=== PATIENT | male | born 1955 | race Caucasian/White ===

== ENCOUNTER 2017-06-04 00:16 | Emergency (ER) | payer OTHER ==
--- NOTE | 2017-06-04 00:49 | ED PDOC ---
Arrival/HPI - General Chief Complaint: Psychiatric Evaluation Time Seen by Provider: 06/04/17 00:21 Historian: Patient, Family (Daughter) - History of Present Illness Narrative History of Present Illness (Text): 06/04/17 00:39 61 year old male, whose past medical history includes hypertension, asthma, diabetes, and bipolar disorder (Noncompliant with Risperidone), presents to the emergency department [facility] for delusional behavior at work today. Patient states "[employer]IR[place] is after him" and called the police. Patient's daughter reports this has been going on for months and has an appointment to see the psychologist Dr. Madeline Finley. Patient's daughter reportedly states he was here last week and was discharged after PES evaluation. Patient is A&Ox3. Patient denies recent travel, drug use, alcohol use, any fever, chills, chest pain, shortness of breath, nausea, vomiting, diarrhea, urinary symptoms, back pain, neck pain, headache, dizziness, suicidal/homicidal Ideation or any other complaints. PMD: Dr. Salinas Symptom Onset: Sudden Symptom Course: Unchanged Activities at Onset: Light Context: Work Past Medical History - Provider Review Nursing Documentation Reviewed: Yes - Travel History Have you recently traveled outside [place] w/in the past 3 mons?: No - Pulmonary Hx Asthma: Yes - Psychiatric Hx Substance Use: No Family/Social History - Physician Review Nursing Documentation Reviewed: Yes Family/Social History: No Known Family HX Smoking Status: no Hx Alcohol Use: No Hx Substance Use: No Allergies/Home Meds Allergies/Adverse Reactions: Allergies montelukast [From Singulair] Allergy (Verified 06/04/17 00:23) RASH Home Medications: Home Meds Medication Instructions Recorded Confirmed Unobtainable 06/04/17 06/04/17 Review of Systems - Physician Review All systems were reviewed & negative as marked: Yes - Review of Systems Constitutional: absent: Fevers, Other (Chills) Respiratory: absent: SOB Cardiovascular: absent: Chest Pain Gastrointestinal: absent: Diarrhea, Nausea, Vomiting Genitourinary Male: absent: Dysuria, Frequency, Hematuria Musculoskeletal: absent: Back Pain, Neck Pain Neurological: absent: Headache, Dizziness Psychiatric: Other (Dilusional behavior). absent: Suicidal Ideation (/ homicidal ideation) Physical Exam Vital Signs Reviewed: Yes Vital Signs Temp Pulse Resp BP Pulse Ox 06/04/17 02:16 98.5 F 80 17 124/71 98 06/04/17 00:17 97.9 F 84 18 142/78 99 Temperature: Afebrile Blood Pressure: Normal Pulse: Regular Respiratory Rate: Normal Appearance: Positive for: Well-Appearing, Non-Toxic, Comfortable Pain Distress: None Mental Status: Positive for: Alert and Oriented X 3 - Systems Exam Head: Present: Atraumatic, Normocephalic Pupils: Present: PERRL Extroacular Muscles: Present: EOMI Conjunctiva: Present: Normal Mouth: Present: Moist Mucous Membranes Neck: Present: Normal Range of Motion Respiratory/Chest: Present: Clear to Auscultation, Good Air Exchange. No: Respiratory Distress, Accessory Muscle Use Cardiovascular: Present: Regular Rate and Rhythm, Normal S1, S2. No: Murmurs Abdomen: Present: Normal Bowel Sounds. No: Tenderness, Distention, Peritoneal Signs Back: Present: Normal Inspection Upper Extremity: Present: Normal Inspection. No: Cyanosis, Edema Lower Extremity: Present: Normal Inspection. No: Edema Neurological: Present: GCS=15, CN II-XII Intact, Speech Normal Skin: Present: Warm, Dry, Normal Color. No: Rashes Psychiatric: Present: Alert, Oriented x 3, Normal Insight, Delusional Medical Decision Making ED Course and Treatment: 06/04/17 00:39 You were treated in the ED for delusional behavior at work today. Patient states "[employer]IR[place] is after him" and called the police. Patient's daughter reports this has been going on for months and has an appointment to see the psychologist Dr. Madeline Finley. Patient's daughter reportedly states he was here last week and was discharged after PES evaluation. Patient is A&Ox3. Patient denies recent travel, drug use, alcohol use, any fever, chills, chest pain, shortness of breath, nausea, vomiting, diarrhea, urinary symptoms, back pain, neck pain, headache, dizziness, suicidal/homicidal Ideation or any other complaints. You were otherwise breathing easily, smiling with your son and daughter, good strength/sensation, walking easily, clear lungs, no abdomen tenderness, no fever temp _97.9__, stable heart rate _84___, stable breathing rate __18__, excellent oxygen level 99% room air, elevated blood pressure __142/ 78___ which we recommend repeat in 2-3 days primary care office to determine further treatment, you have blood tests no infection count 4.5, stable blood level hemoglobin 14.2/platelets 223, stable chemistry sodium 139, potassium 4.1 , bicarbonate 25, chloride 102, bun 16, creatinine 1.1, mildly elevated glucose 216, liver AST/ALT 23/36, Liver Alklaline Phosphatase 70, Liver bilirubin 0.4, heart blood test <0.01, urine test High Trace of Protein and Ketones, radiology Chest X-ray mild vascular markings and recommend followup primary care and pulmonary referral 2-3 days to ensure no complications/cancer development, ECG normal sinus rhythm, PES stated you can stay in the hospital if voluntary but since your not having thoughts to harm yourself or anyone else that if you want you can go home which you and your family want to go home but you must be compliant with your risperdone to help you control your thoughts done thus in the ED with improvement, counselled to take your risperdone and thus discharged home with your family who will watch you and you have a good support network. 1. Recommend follow-up primary care 2-3 days to review symptoms, followup with your mental health appointment that is planned, endocrine clinic for mildly elevated sugar control, urology referral to ensure no complications for protein in urine. 4. If any worsening pain, fever, chills, nausea, vomiting, difficulty breathing, numbness, loss of limb function, pain with urination or any medical condition then return to the ED. 06/04/17 03:35 06/04/17 03:35 06/04/17 03:41 - Lab Interpretations Lab Results: 06/04/17 00:54 06/04/17 00:54 Lab Results 06/04/17 01:35: Urine Opiates Screen Negative, Urine Methadone Screen Negative, Ur Barbiturates Screen Negative, Ur Phencyclidine Scrn Negative, Ur Amphetamines Screen Negative, U Benzodiazepines Scrn Negative, U Oth Cocaine Metabols Negative, U Cannabinoids Screen Negative 06/04/17 01:35: Urine Color Yellow, Urine Appearance Clear, Urine pH 5.5, Ur Specific [place] >= 1.030, Urine Protein Trace H, Urine Glucose (UA) Negative, Urine Ketones Trace H, Urine Blood Negative, Urine Nitrate Negative, Urine Bilirubin Negative, Urine Urobilinogen 0.2, Ur Leukocyte Esterase Negative, Urine RBC 0 - 2, Urine WBC 5 - 10, Ur Epithelial Cells 0 - 2, Urine Bacteria Many 06/04/17 00:54: Alcohol, Quantitative < 10 06/04/17 00:54: Salicylates < 1 L, Acetaminophen < 10.0 L 06/04/17 00:54: Sodium 139, Potassium 4.1, Chloride 102, Carbon Dioxide 25, Anion Gap 16, BUN 16, Creatinine 1.1, Est GFR ( Amer) > 60, Est GFR (Non- Af Amer) > 60, Random Glucose 216 H, Calcium 9.4, Total Bilirubin 0.4, AST 23, ALT 36, Alkaline Phosphatase 70, Troponin I < 0.01, Total Protein 7.4, Albumin 4.1, Globulin 3.2, Albumin/Globulin Ratio 1.3 06/04/17 00:54: WBC 4.5, RBC 5.64, Hgb 14.2, Hct 43.9, MCV 77.8 L, MCH 25.2, MCHC 32.3, RDW 13.5, Plt Count 223, MPV 9.8, Gran % 41.3 L, Lymph % (Auto) 42.6 H, [place] % (Auto) 8.5 H, Eos % (Auto) 6.7 H, Baso % (Auto) 0.9, Gran # 1.84, Lymph # 1.9, [place] # 0.4, Eos # 0.3, Baso # 0.04 I have reviewed the lab results: Yes - RAD Interpretation Radiology Orders: 06/04/17 00:37 CHEST PORTABLE [RAD] Stat - EKG Interpretation Interpreted by ED Physician: Yes (NSR, flipped t waves avr, v1.) Type: 12 lead EKG - Scribe Statement The provider has reviewed the documentation as recorded by the Johnathon Blanco Provider Scribe Attestation: All medical record entries made by the Scribe were at my direction and personally dictated by me. I have reviewed the chart and agree that the record accurately reflects my personal performance of the history, physical exam, medical decision making, and the department course for this patient. I have also personally directed, reviewed, and agree with the discharge instructions and disposition. Disposition/Present on Arrival - Present on Arrival Any Indicators Present on Arrival: No History of DVT/PE: No History of Uncontrolled Diabetes: No Urinary Catheter: No History of Decub. Ulcer: No History Surgical Site Infection Following: None - Disposition Have Diagnosis and Disposition been Completed?: Yes Diagnosis: Hallucination Disposition: HOME/ ROUTINE Disposition Time: 03:40 Patient Plan: Discharge Condition: IMPROVED Additional Instructions: You were treated in the ED for delusional behavior at work today. Patient states "[employer]IRAE is after him" and called the police. Patient's daughter reports this has been going on for months and has an appointment to see the psychologist Dr. Madeline Finley. Patient's daughter reportedly states he was here last week and was discharged after PES evaluation. Patient is A&Ox3. Patient denies recent travel, drug use, alcohol use, any fever, chills, chest pain, shortness of breath, nausea, vomiting, diarrhea, urinary symptoms, back pain, neck pain, headache, dizziness, suicidal/homicidal Ideation or any other complaints. You were otherwise breathing easily, smiling with your son and daughter, good strength/sensation, walking easily, clear lungs, no abdomen tenderness, no fever temp _97.9__, stable heart rate _84___, stable breathing rate __18__, excellent oxygen level 99% room air, elevated blood pressure __142/ 78___ which we recommend repeat in 2-3 days primary care office to determine further treatment, you have blood tests no infection count 4.5, stable blood level hemoglobin 14.2/platelets 223, stable chemistry sodium 139, potassium 4.1 , bicarbonate 25, chloride 102, bun 16, creatinine 1.1, mildly elevated glucose 216, liver AST/ALT 23/36, Liver Alklaline Phosphatase 70, Liver bilirubin 0.4, heart blood test <0.01, urine test High Trace of Protein and Ketones, radiology Chest X-ray mild vascular markings and recommend followup primary care and pulmonary referral 2-3 days to ensure no complications/cancer development, ECG normal sinus rhythm, PES stated you can stay in the hospital if voluntary but since your not having thoughts to harm yourself or anyone else that if you want you can go home which you and your family want to go home but you must be compliant with your risperdone to help you control your thoughts done thus in the ED with improvement, counselled to take your risperdone and thus discharged home with your family who will watch you and you have a good support network. 1. Recommend follow-up primary care 2-3 days to review symptoms, followup with your mental health appointment that is planned, endocrine clinic for mildly elevated sugar control, urology referral to ensure no complications for protein in urine. 4. If any worsening pain, fever, chills, nausea, vomiting, difficulty breathing, numbness, loss of limb function, pain with urination or any medical condition then return to the ED. Referrals: William Salinas MD [Primary Care Provider] - Follow up with primary Forms: [email or web address] ([place])
[2017-06-04 01:37] LABS: BASO # 0.04 K/mm3 (0.0-2.0); BASO % 0.9 % (0.0-3.0); EOS # 0.3 (0.0-0.7); EOS % 6.7 % (1.5-5.0); GRAN # 1.84 (1.4-6.5); GRAN % 41.3 % (50.0-68.0); HEMATOCRIT 43.9 % (42.0-52.0); LYMPH # 1.9 (1.2-3.4); LYMPH % 42.6 % (22.0-35.0); MEAN CELL VOLUME 77.8 fl (80.0-105.0); MEAN CORPUSCULAR HEMOGLOBIN 25.2 pg (25.0-35.0); MEAN CORPUSCULAR HGB CONC 32.3 g/dl (31.0-37.0); MEAN PLATELET VOLUME 9.8 fl (7.0-11.0); MONO # 0.4 (0.1-0.6); MONO % 8.5 % (1.0-6.0); RED CELL DISTRIBUTION WIDTH 13.5 % (11.5-14.5); WHITE BLOOD COUNT 4.5 10^3/ul (4.5-11.0)
[2017-06-04 01:40] LABS: ALB/GLOB RATIO 1.3 (1.1-1.8); ALKALINE PHOSPHATASE 70 U/L (38-126); ALT/SGPT 36 U/L (7-56); AST/SGOT 23 U/L (17-59); BILIRUBIN,TOTAL 0.4 mg/dL (0.2-1.3); BLOOD UREA NITROGEN 16 mg/dL (7-21); CALCIUM 9.4 mg/dL (8.4-10.5); CARBON DIOXIDE 25 mmol/L (21-33); CHLORIDE 102 mmol/L (98-107); GFR AFRICAN-AMERICAN > 60; GLUCOSE,RANDOM 216 mg/dL (70-110); POTASSIUM 4.1 mmol/L (3.6-5.0); SODIUM 139 mmol/L (132-148); TOTAL PROTEIN 7.4 g/dL (5.8-8.3)
[2017-06-04 01:51] LABS: TROPONIN I < 0.01 ng/mL
[2017-06-04 01:54] LABS: PH,URINE 5.5 (4.7-8.0); URINE BILIRUBIN NEGATIVE (NEGATIVE); URINE BLOOD NEGATIVE (NEGATIVE); URINE GLUCOSE (UA) NEGATIVE (NEGATIVE); URINE KETONE TRACE mg/dL (NEGATIVE); URINE LEUKOCYTE ESTERASE NEGATIVE Leu/uL (NEGATIVE); URINE PROTEIN TRACE mg/dL (<30 mg/dL); URINE UROBILINOGEN 0.2 E.U./dL (<1 E.U./dL)
[2017-06-04 01:55] LABS: URINE APPEARANCE CLEAR (CLEAR); URINE COLOR YELLOW (YELLOW)
[2017-06-04 02:03] LABS: URINE BACTERIA MANY (NEG); URINE EPITHELIAL CELLS 0 - 2 /hpf (0-5); URINE RBC 0 - 2 /hpf (0-2)
[2017-06-04 03:48] VITALS: BP 129/80; PULSE 75; RESP 18; TEMP 98.8; O2SAT 99
--- NOTE | 2017-06-04 09:46 | CARD ---
APPROVED REPORT EKG Measurement Heart [id number] <Conclusion> Normal sinus rhythm Mild ST elevations 2,3,F. Probably J-point elevations
--- NOTE | 2017-06-04 13:16 | RAD ---
HISTORY: 61yoM hallucinations COMPARISON: 08/27/2014 FINDINGS: LUNGS: No active pulmonary disease. Multiple calcified granuloma bilaterally. PLEURA: No significant pleural effusion identified, no pneumothorax apparent. CARDIOVASCULAR: Normal. OSSEOUS STRUCTURES: No significant abnormalities. VISUALIZED UPPER ABDOMEN: Normal. OTHER FINDINGS: None. IMPRESSION: No active disease. No significant interval change compared to the prior examination(s).
== END 2017-06-04 03:47 | disposition home or self-care (01) ==
LOC: ED 00:16
DX: R44.3 Hallucinations, unspecified (principal); I10 Essential (primary) hypertension; E11.9 Type 2 diabetes mellitus without complications

== ENCOUNTER 2018-07-13 08:10 | Outpatient (CLI) | payer MEDICAID | END 2018-07-13 08:11 | disposition home or self-care (01) | LOC: CARDIO 08:10 ==